=== PATIENT | male | born 2000 | race Caucasian/White ===

== ENCOUNTER 2021-12-03 12:07 | Emergency (ER) | payer SELFPAY ==
[2021-12-03 12:15] VITALS: BP 119/68; PULSE 86; RESP 16; TEMP 36.3; O2SAT 99
--- NOTE | 2021-12-03 12:42 | ED.GENADUL_ITS ---
Discharge Plan Disposition Patient Disposition: HOME Condition: Improving Discharge Details Chief Complaint: Laceration Clinical Impression: Laceration of thumb Primary Care Provider: José Luis Dillard ED Provider: Jermaine Coombs Home Meds and New Rx's Prescriptions: No Action No Known Home Meds 0RF Discharge Instructions Instructions: Laceration (ED) Additional Instructions: Please return to the emergency department if you develop any swelling pus drainage fevers redness worsening pain or other abnormal symptoms. Keep wound clean and dry. Medical Decision Making 21-year-old male presents after sustaining accidental laceration to dorsum and volar aspect of the left thumb, hemostatic with pressure, up-to-date on tetanus immunization, flexion extension sensation and capillary refill intact, will anesthetized with digital block, will irrigate wound, primary closure with observable sutures. Patient does not want any analgesia at this time. Lower suspicion for fracture or dislocation. Low suspicion for open fracture, no evidence of retained foreign body or infection. Home care instructions and ret urn precautions to be given 13: 20 debrided small area of nonviable tissue 3 times 4-0 Vicryl simple interrupted sutures, Xeroform gauze and Kerlix dressing applied. Home care instructions and return precautions given HPI General Date/Time Provider Initiated Documentation: 12/03/21 12:37 . HPI Narrative: 21-year-old male no past medical history endorses sustaining accidental laceration to left thumb while working on the hitch of a truck was cut by a piece of metal when the spring-loaded hitch released. Hemostatic with pressure. Last tetanus was administered in 2018. No other medical problems. Related Data Home Medications Medication Instructions Recorded Confirmed Unknown [No Known Home Meds] 12/03/21 12/03/21 Allergies Allergy/AdvReac Type Severity Reaction Status Date / Time No Known Allergies Allergy Unverified 12/03/21 12:18 General Stated Complaint: Laceration TIMMY: 4 Review of Systems Narrative: Review of Systems Constitutional: negative Eyes: negative ENT: negative Cardiovascular: negative Respiratory: negative Gastrointestinal: negative : negative Musculoskeletal: negative Skin: Thumb laceration Neurologic: negative Psych: negative PFSH All Active Problems (Updated 12/03/21 @ 13:24 by Jermaine Coombs MD) Laceration of thumb (Acute) Social History Smoking/Tobacco Use Status: Never Smoking risk assessment performed?: Yes Alcohol Intake: never Drug use: Never Exam Narrative Exam Narrative: Physical Examination General: alert, awake, cooperative, resting comfortably, no acute distress HEENT: normocephalic, atraumatic; PERRL, EOM intact, conjunctiva normal; no nasal discharge; moist mucous membranes, oral and pharyngeal mucosa normal, tolerating secretions Neck: supple, trachea midline; full ROM Chest: normal to inspection Respiratory: normal respiratory effort, speaking in full sentences, clear to auscultation, no wheezing, rales or rhonchi Cardiac: regular rate, regular rhythm, S1S2 intact, no murmurs rubs or gallops GI: abdomen soft, non-tender, non-distended; no palpable mass or hepatosplenomegaly Skin: Laceration to left thumb see extremities Neuro: AAOx3, normal speech, moving all extremities Extremities: 2.5 cm flap laceration to volar aspect of thumb, 1.5 cm none gaping laceration to dorsal aspect of interphalangeal joint, no foreign bodies appreciated; capillary refill intact, sensation thumb intact, flexion extension abduction abduction intact Psych: Appropriate mood and affect Course Vital Signs Vital signs: Vital Signs Temperature 36.3 C L 12/03/21 12:15 Pulse 86 12/03/21 12:15 Respiratory Rate 16 12/03/21 12:15 Blood Pressure 119/68 12/03/21 12:15 Pulse Oximetry 99 12/03/21 12:15 Temperature 36.3 C L 12/03/21 12:15 Temperature Source Temporal Artery Scan 12/03/21 12:15 Pulse 86 12/03/21 12:15 Respiratory Rate 16 12/03/21 12:15 Respiratory Effort 12/03/21 12:15 Blood Pressure 119/68 12/03/21 12:15 Blood Pressure Position Sitting 12/03/21 12:15 Pulse Oximetry 99 12/03/21 12:15 Oxygen Delivery Method Room Air 12/03/21 12:15 Oxygen Flow Rate 0 12/03/21 12:15 Pain Level 4 12/03/21 12:15 Procedures Laceration Laceration 1: Site: hand Side (If applicable): left Size (cm): 2.5 Description: linear and flap Depth: simple, single layer Local Anesthetic: Lidocaine 1% Amount of anesthesia used (mL): 2 Pre-repair: wound explored and irrigated extensively Skin layer closed with: vicryl Size (cm): 4-0 Number of sutures: 3 Technique: simple, interrupted
[2021-12-03] MEDS: Lidocaine 1% Multi-Dose 50 ML VIAL (13:00)
[2021-12-03] MEDS: Ibuprofen 600 MG TAB PO (13:15)
== END 2021-12-03 13:27 | disposition home or self-care (01) ==
PROVIDERS: Emergency Provider Emergency Medicine; PCP Pediatrics
DX: S61.012A Laceration without foreign body of left thumb without damage to nail, initial encounter (principal); W26.8XXA Contact with other sharp object(s), not elsewhere classified, initial encounter
CPT/HCPCS: 12001; J3490